=== PATIENT | male | born 2000 | race American Indian/Alaskan Native ===

== ENCOUNTER 2021-09-21 17:49 | Emergency (ER) | payer BC ==
[2021-09-21] MEDS ORDERED: diphenhydrAMINE 50 MG/ML VIAL IV ONE (22:54)
[2021-09-21] MEDS ORDERED: dexAMETHasone 20 MG/5 ML VIAL IV ONE (22:54)
[2021-09-21] MEDS ORDERED: METOCLOPRAMIDE 10 MG/2 ML INJ IV ONE (22:54)
[2021-09-21 23:19] LABS: Basophils % (Auto) 0.2 % (0.0-1.8); Eosinophils # (Auto) 0.1 K/mm3 (0.0-0.4); Eosinophils % (Auto) 1.2 % (0.0-4.3); Hematocrit 40.3 % (35.5-45.6); Hemoglobin 13.3 gm/dl (11.8-15.2); Lymphocytes # (Auto) 2.1 K/mm3 (1.2-5.4); Mean Corpuscular HGB Conc 33 % (32-34); Mean Corpuscular Volume 88 fl (84-94); Monocytes # (Auto) 0.9 K/mm3 (0.0-0.8); Monocytes % (Auto) 8.4 % (0.0-7.3); Platelet Count 271 K/mm3 (140-440); Red Blood Count 4.58 M/mm3 (3.65-5.03); Red Cell Distribution Width 14.1 % (13.2-15.2)
[2021-09-21 23:33] LABS: Alanine Aminotransferase 30 units/L (7-56); Albumin 4.2 g/dL (3.9-5); BUN/Creatinine Ratio 13; Blood Urea Nitrogen 13 mg/dL (9-20); Hemolysis Index 420
[2021-09-21] MEDS ORDERED: SODIUM CHLORIDE 0.9% 1000 ML 1,000 ML IV ONE (23:38)
--- NOTE | 2021-09-21 23:39 | Emergency Department Report ---
ED General Adult HPI - General Chief complaint: Eye Problems Stated complaint: SWOLLEN OPTIC NERVE Time Seen by Provider: 09/21/21 22:56 Source: patient Mode of arrival: Ambulatory Limitations: No Limitations - History of Present Illness Initial comments: Patient is a 21-year-old male with history of anxiety who presents for blurred vision to the left eye. Patient states seen by ophthalmology today advised to present to ED for CT scan to rule out papilledema patient is currently alert oriented x3 amatory with steady gait in no acute distress. Patient rates pain currently at 3/10 exacerbated by movement. Pain is relieved by resting. Patient remains amatory with steady gait. Patient denies sore throat no head congestion no fever chills. Severity scale (0 -10): 0 - Related Data Previous Rx's Medication Instructions Recorded Last Taken Type Acetaminophen [Acetaminophen TAB] 1,000 mg PO Q6HR PRN #30 tablet 09/22/21 Unknown Rx Metoclopramide [Reglan] 10 mg PO Q6H PRN #30 tablet 09/22/21 Unknown Rx diphenhydrAMINE [Benadryl CAP] 25 mg PO Q6HR PRN #30 capsule 09/22/21 Unknown Rx Allergies Allergy/AdvReac Type Severity Reaction Status Date / Time No Known Allergies Allergy Unverified 09/21/21 19:16 ED Review of Systems ROS: Stated complaint: SWOLLEN OPTIC NERVE Other details as noted in HPI Constitutional: denies: chills, fever Eyes: eye pain (Pressure itching), vision change. denies: eye discharge (Spotting) ENT: denies: ear pain, throat pain, dental pain, hearing loss, epistaxis, congestion Respiratory: denies: cough, shortness of breath, wheezing Cardiovascular: denies: chest pain, palpitations Endocrine: no symptoms reported Gastrointestinal: denies: abdominal pain, nausea, diarrhea Genitourinary: denies: urgency, dysuria Musculoskeletal: denies: back pain, joint swelling, arthralgia Skin: denies: rash, lesions Neurological: headache ED Past Medical Hx - Past Medical History Previous Medical History?: No - Surgical History Past Surgical History?: No - Medications Home Medications: Home Medications Medication Instructions Recorded Confirmed Last Taken Type Acetaminophen [Acetaminophen TAB] 1,000 mg PO Q6HR PRN #30 tablet 09/22/21 Unknown Rx Metoclopramide [Reglan] 10 mg PO Q6H PRN #30 tablet 09/22/21 Unknown Rx diphenhydrAMINE [Benadryl CAP] 25 mg PO Q6HR PRN #30 capsule 09/22/21 Unknown Rx ED Physical Exam - General Limitations: No Limitations General appearance: alert, in no apparent distress - Head Head exam: Present: atraumatic, normocephalic, normal inspection - Eye Eye exam: Present: normal appearance, PERRL, EOMI. Absent: scleral icterus, conjunctival injection, nystagmus, periorbital swelling, periorbital tenderness Pupils: Present: normal accommodation, unequal - Expanded Eye Exam Expanded Pupils: Regular, Round: Bilateral, Reactive: Bilateral Sclera/Conjunctival: Normal Inspection: Bilateral, Injection: Left Anterior chamber: Normal Inspection: Bilateral Posterior chamber: Deferred: Bilateral, Hemorrhage: Bilateral Visual acuity (R) = 20/: 20 Visual acuity (L) = 20/: 30 With correction: No - ENT ENT exam: Present: normal orophraynx, mucous membranes moist, TM's normal bilaterally - Neck Neck exam: Present: normal inspection - Respiratory Respiratory exam: Present: normal lung sounds bilaterally, chest wall tenderness. Absent: respiratory distress, wheezes, stridor - Cardiovascular Cardiovascular Exam: Present: regular rate, normal rhythm, normal heart sounds. Absent: systolic murmur, diastolic murmur, rubs, gallop - GI/Abdominal GI/Abdominal exam: Present: soft, normal bowel sounds. Absent: distended, tenderness, guarding, rebound, rigid, bruit, hernia - Rectal Rectal exam: Absent: normal inspection, normal rectal tone - Extremities Exam Extremities exam: Present: normal inspection, full ROM, normal capillary refill - Back Exam Back exam: Present: normal inspection, full ROM, CVA tenderness (R). Absent: tenderness, CVA tenderness (L) - Neurological Exam Neurological exam: Present: alert, oriented X3, CN II-XII intact, normal gait, reflexes normal. Absent: motor sensory deficit - Psychiatric Psychiatric exam: Present: normal affect, normal mood - Skin Skin exam: Present: warm, dry, intact, normal color. Absent: rash ED Course Vital Signs 09/21/21 19:17 Temperature 98.8 F Pulse Rate 103 H Respiratory 16 Rate Blood Pressure 140/66 [Right] O2 Sat by Pulse 100 Oximetry ED Medical Decision Making - Lab Data Result diagrams: 09/21/21 23:02 09/22/21 00:38 Labs 09/21/21 09/21/21 23:02 23:02 WBC 10.5 RBC 4.58 Hgb 13.3 Hct 40.3 MCV 88 MCH 29 MCHC 33 RDW 14.1 Plt Count 271 Lymph % (Auto) 20.0 [place] % (Auto) 8.4 H Eos % (Auto) 1.2 Baso % (Auto) 0.2 Lymph # (Auto) 2.1 [place] # (Auto) 0.9 H Eos # (Auto) 0.1 Baso # (Auto) 0.0 Seg Neutrophils % 70.2 H Seg Neutrophils # 7.4 Sodium 137 Potassium 5.8 H Chloride 101.4 Carbon Dioxide 24 Anion Gap 17 BUN 13 Creatinine 1.0 Estimated GFR > 60 BUN/Creatinine Ratio 13 Glucose 127 H Calcium 9.0 Total Bilirubin 0.30 AST 37 ALT 30 Alkaline Phosphatase 41 Total Protein 7.5 Albumin 4.2 Albumin/Globulin Ratio 1.3 - Radiology Data Radiology results: report reviewed, image reviewed CT HEAD WITHOUT CONTRAST INDICATION / CLINICAL INFORMATION: Headache, decreased vision in LEFT eye. TECHNIQUE: All CT scans at this location are performed using CT dose reduction for ALARA by means of automated exposure control. COMPARISON: None available. FINDINGS: HEMORRHAGE: None. EXTRA-AXIAL SPACES: Normal in size and morphology for the patient's age. VENTRICULAR SYSTEM: Normal in size and morphology for the patient's age. CEREBRAL PARENCHYMA: No significant abnormality. No acute territorial infarct. MIDLINE SHIFT / HERNIATION: None. CEREBELLUM / BRAINSTEM: No significant abnormality. ORBITS: Normal as visualized SOFT TISSUES: No significant abnormality. SKULL: No significant abnormality. PARANASAL SINUSES / MASTOID AIR CELLS: Normal as visualized ADDITIONAL FINDINGS: None. IMPRESSION: 1. No acute intracranial abnormality. Signer Name: Lazarus Brown DO Signed: 09/21/2021 11:42 PM Workstation Name: [id number] Transcribed By: ANDREY Dictated By: LAZARUS BROWN DO Electronically Authenticated By: LAZARUS BROWN DO Signed Date/Time: 09/21/212341 DD/ 39 TD/TT: - Medical Decision Making CT head normal labs noted and repeat labs are normal, visual acuity noted 20/30 left, 20/20 right. Patient is PERRLA, EOM. There is no periorbital tenderness or swelling, plan follow-up with ophthalmology in the morning as directed. Take medications as prescribed, turn to emergency department should symptoms worsen. Patient verbalized agreement understanding with discharge plan. Kassie ent DC'd home in stable condition at this time. Critical care attestation.: If time is entered above; I have spent that time in minutes in the direct care of this critically ill patient, excluding procedure time. ED Disposition Clinical Impression: Decreased vision of left eye Headache Qualifiers: Headache type: unspecified Headache chronicity pattern: unspecified pattern Intractability: not intractable Qualified Code(s): R51.9 - Headache, unspecified Disposition: HOME / SELF CARE / HOMELESS Is pt being admited?: No Does the pt Need Aspirin: No Condition: Stable Instructions: Visual Disturbances, Migraine Headache, [id number] Additional Instructions: Take medications as prescribed, follow-up with ophthalmology in the a.m. Return to emergency department should symptoms worsen. Prescriptions: Acetaminophen [Acetaminophen TAB] 1,000 mg PO Q6HR PRN #30 tablet PRN Reason: pain diphenhydrAMINE [Benadryl CAP] 25 mg PO Q6HR PRN #30 capsule PRN Reason: Headache Metoclopramide [Reglan] 10 mg PO Q6H PRN #30 tablet PRN Reason: Headache Referrals: FARA REYES MD [Staff Physician] - [facility] Forms: Work/School Release Form(ED) Time of Disposition: 02:36
--- NOTE | 2021-09-21 23:46 | Cat Scan Report ---
CT HEAD WITHOUT CONTRAST INDICATION / CLINICAL INFORMATION: Headache, decreased vision in LEFT eye. TECHNIQUE: All CT scans at this location are performed using CT dose reduction for ALARA by means of automated exposure control. COMPARISON: None available. FINDINGS: HEMORRHAGE: None. EXTRA-AXIAL SPACES: Normal in size and morphology for the patient's age. VENTRICULAR SYSTEM: Normal in size and morphology for the patient's age. CEREBRAL PARENCHYMA: No significant abnormality. No acute territorial infarct. MIDLINE SHIFT / HERNIATION: None. CEREBELLUM / BRAINSTEM: No significant abnormality. ORBITS: Normal as visualized SOFT TISSUES: No significant abnormality. SKULL: No significant abnormality. PARANASAL SINUSES / MASTOID AIR CELLS: Normal as visualized ADDITIONAL FINDINGS: None. IMPRESSION: 1. No acute intracranial abnormality. Signer Name: Lazarus Brown DO Signed: 09/21/2021 11:42 PM Workstation Name: [id number]
[2021-09-22 01:04] LABS: BUN/Creatinine Ratio 12; Blood Urea Nitrogen 13 mg/dL (9-20); Calcium 9.1 mg/dL (8.4-10.2); Hemolysis Index 14
[2021-09-22 02:57] VITALS: BP 132/61
== END 2021-09-22 03:10 | disposition home or self-care (01) ==
LOC: ED 17:49
DX: H54.7 Unspecified visual loss (principal); R51.9 Headache, unspecified; Z79.899 Other long term (current) drug therapy
CPT/HCPCS: 36415; 70450; 80048; 80053; 85025; 96361; 96374; 96375; 99284; J1100; J1200; J2765; J7030